=== PATIENT | female | born 1935 | race Caucasian/White ===

== ENCOUNTER → 2020-11-28 | Outpatient (CLI) | payer MEDICARE, BC | LOC: MAMO 10:00 | DX: Z12.31 Encounter for screening mammogram for malignant neoplasm of breast (principal); C50.511 Malignant neoplasm of lower-outer quadrant of right female breast; D70.2 Other drug-induced agranulocytosis | CPT/HCPCS: 77063; 77067 ==

== ENCOUNTER → 2021-10-04 | Outpatient (CLI) | payer MEDICARE, BC | LOC: KOH-I 14:21 | DX: R05.9 Cough, unspecified (principal) | CPT/HCPCS: 71046 ==

== ENCOUNTER → 2021-10-28 | Outpatient (CLI) | payer MEDICARE, BC | LOC: HEART 5 09:04 | DX: R06.02 Shortness of breath (principal) | CPT/HCPCS: 94060; 94729 ==

== ENCOUNTER → 2021-12-09 | Outpatient (CLI) | payer MEDICARE, BC | LOC: MAMO 13:00 | DX: Z12.31 Encounter for screening mammogram for malignant neoplasm of breast (principal); C50.511 Malignant neoplasm of lower-outer quadrant of right female breast; D70.2 Other drug-induced agranulocytosis; Z51.11 Encounter for antineoplastic chemotherapy | CPT/HCPCS: 77063; 77067; 77080 ==